=== PATIENT | male | born 1955 | race Caucasian/White ===

== ENCOUNTER 2016-08-01 05:58 | Day surgery (SDC) | payer OTHER ==
[~2016-08-01] VITALS: Ht 180.3 cm; Wt 70.9 kg
[2016-08-01] VITALS (7 sets, daily range): BP systolic 105–133; BP diastolic 59–79; PULSE 66–80; RESP 10–16; O2SAT 96–98
[~2016-08-01 05:58] MED LIST: CIPR-232 PO; FINA5TAB9 PO; Lactated Ringer's 1,000 ML IV SCH; PHEN-777 PO; TAMS0.4C98 PO
[2016-08-01] MEDS ORDERED: Dexamethasone 4 mg/mL Inj ONE (05:59)
[2016-08-01] MEDS ORDERED: Ondansetron 2 mg/mL 2 mL Inj ONE (05:59)
[2016-08-01] MEDS ORDERED: fentaNYL-PF 50 mCg/mL 2 mL Inj ONE (05:59)
[2016-08-01] MEDS ORDERED: Propofol 10,000 mCg/mL 20 mL Inj ONE (05:59)
[2016-08-01] MEDS ORDERED: Lactated Ringer's 1,000 ML IV ONE (06:17)
[2016-08-01] MEDS ORDERED: Lactated Ringer's 500 ML IV PRN (07:26)
[2016-08-01] MEDS ORDERED: Lactated Ringer's 1,000 ML IV SCH (07:26)
--- NOTE | 2016-08-01 07:26 | PCM.HPANE ---
Patient Data Surgeon Admitting Provider: Attending Provider:Natan Hanna MD Primary Care Physician:Kalyan Carter MD Other Provider:Melvi Aguilaringham Anesthesia Reason for Visit Umbilical Hernia Ht/WT & BMI Height (Feet): 5 Height (Inches): 11.00 Weight (Kilograms): 70.940 Body Mass Index 21.00 Allergies Coded Allergies: Penicillins (Verified Adverse Reaction, Severe, DISCOMFORT, 03/25/16) Past Anesthesia History Anesthesia History: Denies:: Anesthesia Reactions, Malignant Hyperthermia Diabetes History Hx Diabetes?: No MRSA MRSA: No Medications Hypertension Medication: No Home Meds Incl Beta Iban: No Reported Medications Tamsulosin (Flomax)0.4 Mg Capsule0.8 Mg PO DAILY Ref 0 07/30/16 Phenazopyridine 200 Mg [id number] Mg PO TID PRN urinary discomfort Ref 0 07/30/16 Finasteride 5 Mg Tablet5 Mg PO DAILY 30 Days Ref 0 07/30/16 Ciprofloxacin (Cipro)250 Mg [id number] Mg PO Q12H Ref 0 07/30/16 Discontinued Reported Medications Finasteride 5 Mg Tablet5 Mg PO DAILY 30 Days Ref 0 03/25/16 Tamsulosin (Flomax)0.4 Mg Capsule0.8 Mg PO DAILY Ref 0 03/25/16 Phenazopyridine (Pyridium)200 Mg [id number] Mg PO TID PRN For Pain Ref 0 03/25/16 History History of ENT Problems?: No Hx of Heart Problems?: No Cardiovascular History: Denies:: Congestive Heart Failure Hypertension Hx of Respiratory Problem?: No Respiratory History: Denies:: Oxygen Administration Tuberculosis Use of C-PAP Machine Hx Neurologic Problems?: No Neurological History: Denies:: CVA Multiple Sclerosis Parkinson's Disease Seizures Hx of GI Problems?: Yes Other GI Pertinent History: umbilical hernia - current admission problem Hx of Problems?: Yes Other Pertinent History: 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 Pressure Ulcers Hx Musculoskeletal Problems?: No Musculoskeletal History: Denies:: Fibromyalgia Joint Replacement Osteoarthritis Hx of Psycho/Social Problems?: No Hx Surgeries?: No Hx Any Other Health Problems?: Yes Other History: Denies:: Cancer Endocrine Disease Hospitalization Thyroid Disease History Blood Transfusions: Denies:: Blood Transfusions Hx Diabetes: No Hx Alcohol Use: YesAlcoholic Drinks Per Day: rareHx Substance Use: No Smoking Status: Unknown if Ever Smoker Have You Smoked inLast 12 mo: No Stop/Bang S-Snoring: Do You Snore Loudly: No T-Tired: feel tired, fatigued: No O-Obsered: Observed not breath: No P-Blood Pressure: treated: No B- Body Mass Index > 35 kg/m2: No A- Age over 50: Yes N- Neck Large Circumference: No G- Gender Male: Yes TANIA Total Score: 2 TANIA Risk Assessment: Low Risk, <3 Yes Risk Assessment Category Category 1A: Patient has history of documented sleep apnea, and HAS NOT received any narcotic, sedative or anesthesia administration during this stay. Category 1B: Patient has history of documented sleep apnea, and HAS received any narcotic , sedative or anesthesia administration during this stay Category 2: Patient has SUSPECTED Obstructive Sleep Apnea, and HAS received any narcotic , sedative or anesthesia administration during this stay. Category 3: Patient has SUSPECTED Obstructive Sleep Apnea and HAS NOT received narcotic, sedative or anesthesia administration during this stay. Category 4: Outpatient in Procedural Areas with known sleep apnea or who screen positive for High Risk via the STOP/BANG questionnaire. Exam Exam Vital Signs Vital Signs Date Time Temp Pulse Resp B/P Pulse Ox O2 Delivery O2 Flow Rate FiO2 08/01/16 06:17 36.6 80 14 133/79 96 Room Air General Appearance: Alert, Oriented X3, Cooperative, No Acute Distress HEENT/AIRWAY: MP 1 Lungs: Clear to Auscultation, Normal Air Movement Heart: Exam Unremarkable, Regular Rate/Rhythm, No Murmurs/Rubs/Gallops Meds/Labs/Diagnostics Admission Meds Current Medications Lactated Ringer's (Lr) 1,000 ml @ ud STK-MED ONCE IV Last administered on t 06:17; Start 08/01/16 at 06:17; Stop 08/01/16 at 06:18; Status DC Plan Impression Patient chart reviewed, patient interviewed and anesthestic plan with risks, benefits, and alternatives discussed, and informed consent obtained. NPO Status: 07/31@2100 ASA Physical Status: ASA1 Normal Healthy Anesthetic Plan: GA Bene/Risks/Altern/Consents: Yes HP Complete Prior to Induction: Yes Andres Celestin MD Aug 01, 2016 07:05
[2016-08-01] MEDS ORDERED: EPHEDrine Sulfate 50 mg/mL Inj IVPUSH PRN (07:30)
[2016-08-01] MEDS ORDERED: Phenylephrine 10,000 mCg/mL Inj IVPUSH PRN (07:30)
[2016-08-01] MEDS ORDERED: fentaNYL-PF 50 mCg/mL 2 mL Inj IVPUSH PRN (07:30)
[2016-08-01] MEDS ORDERED: MetoCLOpramide 5 mg/mL 2 mL Inj IVPUSH PRN (07:30)
[2016-08-01] MEDS ORDERED: Atropine 0.4 mg/mL Inj IVPUSH PRN (07:30)
[2016-08-01] MEDS ORDERED: Ondansetron 2 mg/mL 2 mL Inj IVPUSH PRN (07:30)
[2016-08-01] MEDS ORDERED: HYDROmorphone 1 mg/mL Inj IVPUSH PRN (07:30)
[2016-08-01] MEDS ORDERED: Labetalol 5 mg/mL 4 mL Inj IV PRN (07:30)
[2016-08-01] MEDS ORDERED: hydrALAZINE 20 mg/mL Inj IVPUSH PRN (07:30)
[2016-08-01] MEDS ORDERED: Bupivacaine-MPF 0.5% 30 mL Inj INFILTRATE ONE (07:53)
--- NOTE | 2016-08-01 08:35 | PCM.ANEP1 ---
Post Anesthesia Phase 1 PACU Phase 1 Assessment Vital Signs Vital Signs Date Time Temp Pulse Resp B/P Pulse Ox O2 Delivery O2 Flow Rate FiO2 08/01/16 06:17 36.6 80 14 133/79 96 Room Air Anesthetic Administered: GA Level of Alertness: Sleepy, easy to arouse MARTINEZ's with Equal Strength: Yes Pain: No Nausea or Vomiting: No Oxygen Delivery: Nasal Cannula Lungs: Clear to Auscultation, Normal Air Movement Summary VSS Andres Celestin MD Aug 01, 2016 08:35
--- NOTE | 2016-08-01 08:38 | PCM.ANEP2 ---
Post Anesthesia Evaluation ASA/CMS Post Anesthesia VS in Patient's Normal Range?: Yes Resp Stable; Airway Patent?: Yes CV Function & Hydration Stable: Yes Mental Status Recovered?: Yes Pain control Satisfactory?: Yes N/V Control Satisfactory?: Yes Andres Celestin MD Aug 01, 2016 08:38
--- NOTE | 2016-08-01 08:47 | OP ---
[address] [address] OPERATIVE REPORT PATIENT: HENRI CERON : 1955 MR#: [id number] ADMIT: 08/01/2016 JOB ID: [id number] DATE OF SURGERY: 08/01/2016 ANESTHESIA: General. PREOPERATIVE DIAGNOSIS(ES): Symptomatic umbilical hernia. POSTOPERATIVE DIAGNOSIS(ES): Symptomatic umbilical hernia. OPERATIVE PROCEDURE: Open repair of incarcerated umbilical hernia. SURGEON: Dr. Natan Hanna. GARLAND MAKER: Petra Peña PA-C (the assistant news director was required for the safe and timely completion of the case). COMPLICATIONS: None. ESTIMATED BLOOD LOSS: Minimal. CONDITION: Satisfactory. SPECIMEN: None. FINDINGS: There is an approximately 2 cm fascial defect. The patient was insistent that no mesh be placed. Therefore, this was repaired with a running 2-0 Prolene in a transverse fashion. INDICATIONS/SIGNIFICANT HISTORY: The patient is a 61-year-old man whose had a symptomatic umbilical hernia for quite some time. He decided to get it repaired and he decided that now is a good time to undertake that. OPERATIVE TECHNIQUE: The patient was taken to the operating room and placed in the supine position. General anesthesia was administered. The abdomen was prepped and draped in a standard surgical fashion. A procedural pause was performed. A small infraumbilical curvilinear incision was made and dissection carried down through the skin and subcutaneous tissue. The umbilical stalk and sac was circumferentially dissected free and transected. There was a large amount of incarcerated fat. There was too much to be able to reduce. I, therefore, carefully transected it using electrocautery. The fascia was then cleared. I then closed the fascia with a running 2-0 Prolene transversely. The umbilicus was then tacked down to the fascia using a 3-0 PDS. The skin was closed using a 4-0 Monocryl. Local anesthetic was injected before the completion of the case.
[2016-08-01] MEDS ORDERED: HYDROcodone-APAP 5-325 mg Tablet PO PRN (09:45)
== END 2016-08-01 23:59 | disposition home or self-care (01) ==
LOC: SAS 05:58
PROVIDERS: ATTEND General Practice
DX: K42.0 Umbilical hernia with obstruction, without gangrene (principal)
CPT/HCPCS: 49587; J1100; J2250; J2405; J7120